=== PATIENT | female | born 1955 | race African-American/Black ===

== ENCOUNTER → 2017-10-05 | Outpatient (CLI) | payer MEDICARE ==
[~2017-10-05] VITALS: Ht 157.5 cm; Wt 83.0 kg
[2017-10-05 14:02] VITALS: BP 146/72
== END | disposition home or self-care (01) ==
LOC: SRCNTR 13:54
PROVIDERS: ATTEND Internal Medicine
DX: J44.9 Chronic obstructive pulmonary disease, unspecified (principal); G47.33 Obstructive sleep apnea (adult) (pediatric); C85.90 Non-Hodgkin lymphoma, unspecified, unspecified site; E78.5 Hyperlipidemia, unspecified; I10 Essential (primary) hypertension; R91.8 Other nonspecific abnormal finding of lung field; F17.210 Nicotine dependence, cigarettes, uncomplicated
CPT/HCPCS: G0463

== ENCOUNTER → 2017-11-12 | Outpatient (CLI) | payer MEDICARE ==
[~2017-11-12] VITALS: Ht 157.5 cm; Wt 82.5 kg
[2017-11-12 13:07] VITALS: BP 140/80
== END | disposition home or self-care (01) ==
LOC: SRCNTR 12:59
PROVIDERS: ATTEND Internal Medicine
DX: J44.9 Chronic obstructive pulmonary disease, unspecified (principal); I10 Essential (primary) hypertension; C85.90 Non-Hodgkin lymphoma, unspecified, unspecified site; F17.200 Nicotine dependence, unspecified, uncomplicated
CPT/HCPCS: G0463